=== PATIENT | female | born 1930 | race African-American/Black ===

== ENCOUNTER 2020-12-28 07:50 | Emergency (ER) | payer BC ==
[~2020-12-28] VITALS: Ht 315 cm; Wt 64.0 kg
[2020-12-28] MEDS ORDERED: ACETAMINOPHEN 325MG TABLET PO STA (08:11)
[2020-12-28] MEDS ORDERED: ACET-2708 MT (12:19)
[2020-12-28 16:26] VITALS: BP 134/84
== END 2020-12-28 17:06 | disposition home or self-care (01) ==
LOC: ER 07:50
DX: M25.561 Pain in right knee (principal); I10 Essential (primary) hypertension; G30.9 Alzheimer's disease, unspecified; F02.80 Dementia in other diseases classified elsewhere, unspecified severity, without behavioral disturbance, psychotic disturbance, mood disturbance, and anxiety; W06.XXXA Fall from bed, initial encounter; Y93.89 Activity, other specified; Y92.9 Unspecified place or not applicable; Z88.0 Allergy status to penicillin
CPT/HCPCS: 73560; 73700; 99285